=== PATIENT | female | born 1990 | race African-American/Black ===

== ENCOUNTER 2023-11-11 08:32 | Emergency (ER) | payer MEDICAID ==
[~2023-11-11] VITALS: Ht 165.1 cm; Wt 77.0 kg
[2023-11-11 08:40] VITALS: BP 118/63; PULSE 83; RESP 18; TEMP 98; O2SAT 100
== END 2023-11-11 18:00 | disposition home or self-care (01) ==
LOC: ER 08:32
DX: Z48.00 Encounter for change or removal of nonsurgical wound dressing (principal)
CPT/HCPCS: 99281